=== PATIENT | male | born 2000 | race Caucasian/White ===

== ENCOUNTER 2022-11-27 19:01 | Emergency (ER) | payer OTHER ==
[~2022-11-27] VITALS: Ht 182.9 cm; Wt 84.1 kg
[2022-11-27 19:06] VITALS: BP 131/80; PULSE 58; TEMP 98.4
== END 2022-11-27 20:03 | disposition home or self-care (01) ==
LOC: COL.ER 19:01
DX: L60.0 Ingrowing nail (principal)